=== PATIENT | male | born 2005 | race African-American/Black ===

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

== ENCOUNTER 2024-03-27 00:50 | Emergency (ER) | payer SELFPAY ==
[2024-03-27] MEDS ORDERED: diphenhydrAMINE 50 MG/ML VIAL ONE (01:14)
[2024-03-27] MEDS ORDERED: Ketorolac Tromethamine 30 MG (1 mL) VIAL ONE (01:14)
[2024-03-27] MEDS ORDERED: Metoclopramide HCl 10 MG (2 mL) VIAL ONE (01:14)
== END 2024-03-27 03:15 | disposition home or self-care (01) ==
LOC: ERS 00:50
DX: G43.909 Migraine, unspecified, not intractable, without status migrainosus (principal); Z55.6 Problems related to health literacy
CPT/HCPCS: 96365; 96375; J1200; J1885; J2765